=== PATIENT | female | born 1965 | race Caucasian/White ===

== ENCOUNTER 2016-11-03 14:14 | Emergency (ER) | payer OTHER ==
[~2016-11-03] VITALS: Ht 162.6 cm; Wt 80.6 kg
[~2016-11-03 14:14] MED LIST: ANAPROX DS550 M1 PO; BUSPAR5 MG; BUSPAR5 MG PO; CYMBALTA60 MG; CYMBALTA60 MG PO; GLIPIZIDE10 MG; GLIPIZIDE10 MG PO; HYDROCODON-ACE1 EAC7 PO; LEVEMIR FL100 UNIT/1 SC; LISINOPRIL20 MG PO; METFORMIN HCL1000 M1; METFORMIN HCL1000 MG PO; SEROQUEL50 MG; SEROQUEL50 MG PO
[2016-11-03 15:41] LABS: EOSINOPHIL (%) 1.2 % (0-5); EOSINOPHIL COUNT 0.1 K/uL (0-0.3); HEMATOCRIT 35.6 % (36.0-46.0); IMMATURE GRANULOCYTE (%) 0.2 % (0.0-0.7); IMMATURE GRANULOCYTE COUNT 0.2 K/uL; LYMPHOCYTE COUNT 2.1 K/uL (1.0-2.8); MCH 29.2 PG (29.0-34.0); MCHC 33.7 G/DL (30.0-36.0); MCV 86.6 FL (83-99); MEAN PLAT.VOLUME 10.3 uM^3 (9.5-12.4); MONOCYTE (%) 8.3 % (3-12); NEUTROPHIL (%) 73.1 % (45-76); NEUTROPHIL COUNT 8.8 K/uL (1.8-6.4); PLATELET COUNT 231 K/uL (156-360); RBC DIS.WIDTH-CV 12.2 % (11.8-14.6); RBC DIS.WIDTH-SD 37.7 % (39-53); RED BLOOD COUNT 4.11 M/uL (3.80-5.20); WHITE BLOOD COUNT 12.1 K/uL (4.1-10.2)
[2016-11-03 15:49] LABS: CHLORIDE 99 mEq/L (99-109); POTASSIUM 4.2 mEq/L (3.7-5.4); SODIUM 133 mEq/L (136-147)
[2016-11-03 15:52] LABS: ANION GAP 13 MEQ/L (2-14)
[2016-11-03 15:53] LABS: TOTAL BILIRUBIN 0.4 mg/dL (0.0-1.0)
[2016-11-03 15:54] LABS: ALKALINE PHOSPHATASE 87 IU/L (3-129)
[2016-11-03 15:55] LABS: GFR ESTIMATE (CALCULATED) > 59 mL/min/
[2016-11-03 15:56] LABS: DIRECT BILIRUBIN 0.1 mg/dL (0.0-0.3); UREA NITROGEN (BUN) 24 mg/dL (9-23)
[2016-11-03 16:01] LABS: GLUCOSE 466 mg/dL (70-99)
[2016-11-03 17:25] LABS: POINT-OF-CARE METER ID UU13113702; POINT-OF-CARE USER ID 608261302
[2016-11-03] MEDS ORDERED: CLINDAMYCIN HC300 MG PO (17:47)
[2016-11-03 17:48] LABS: ADD MIUA? YES; BILIRUBIN NEGATIVE; BLOOD TRACE; COLOR YELLOW ((YELLOW)); GLUCOSE (STRIP) >=1000; KETONES 40; LEUKOCYTES SMALL; NITRITE NEGATIVE; PH, URINE 5.5 (5-8); PROTEIN (STRIP) 30; SPECIFIC GRAVITY 1.036 (1.000-1.030); UROBILINOGEN 0.2 MG/DL (0.2-1.0)
[2016-11-03 18:06] LABS: BACTERIA 1+ /HPF; CASTS NONE SEEN /LPF; CRYSTALS NONE SEEN; EPITHELIAL CELLS 1+ /HPF; MUCUS NONE SEEN /LPF; RED BLOOD CELLS RARE /HPF (0-5); UCUL ADDED? NO
[2016-11-03 20:05] VITALS: BP 138/82
[2016-11-03 22:40] LABS: POINT-OF-CARE METER ID UU13113778
== END 2016-11-03 20:10 | disposition home or self-care (01) ==
LOC: EME 14:14
PROVIDERS: Emergency Medicine
DX: L03.116 Cellulitis of left lower limb (principal); E11.621 Type 2 diabetes mellitus with foot ulcer; L97.529 Non-pressure chronic ulcer of other part of left foot with unspecified severity; E11.65 Type 2 diabetes mellitus with hyperglycemia; Z91.14 Patient's other noncompliance with medication regimen; I10 Essential (primary) hypertension; F31.9 Bipolar disorder, unspecified; Z79.84 Long term (current) use of oral hypoglycemic drugs; Z87.891 Personal history of nicotine dependence
CPT/HCPCS: 73630; 80048; 80076; 81003; 82948; 83605; 85025; 99281; 99285; J0696; J7030; J7050

== ENCOUNTER 2017-08-11 00:24 | Inpatient (IN) | payer OTHER ==
[~2017-08-11] VITALS: Ht 162.6 cm; Wt 81.8 kg
[~2017-08-11 00:24] MED LIST changes: +CLINDAMYCIN HC300 MG PO
[2017-08-11 01:35] LABS: HEMATOCRIT 34.6 % (36.0-46.0); MCH 28.2 PG (29.0-34.0); MCHC 32.1 G/DL (30.0-36.0); MCV 87.8 FL (83-99); MEAN PLAT.VOLUME 10.3 uM^3 (9.5-12.4); PLATELET COUNT 315 K/uL (156-360); RBC DIS.WIDTH-CV 13.2 % (11.8-14.6); RBC DIS.WIDTH-SD 42.1 % (39-53); RED BLOOD COUNT 3.94 M/uL (3.80-5.20); WHITE BLOOD COUNT 7.9 K/uL (4.1-10.2)
[2017-08-11 01:50] LABS: CHLORIDE 95 mEq/L (99-109); POTASSIUM 4.7 mEq/L (3.7-5.4); SODIUM 133 mEq/L (136-147)
[2017-08-11 01:53] LABS: ANION GAP 12 MEQ/L (2-14)
[2017-08-11 01:55] LABS: GFR ESTIMATE (CALCULATED) > 59 mL/min/
[2017-08-11 01:56] LABS: UREA NITROGEN (BUN) 14 mg/dL (9-23)
[2017-08-11 02:00] LABS: TROP-I INTERPRETATION POSITIVE
[2017-08-11 02:01] LABS: GLUCOSE 463 mg/dL (70-99)
[2017-08-11 02:02] LABS: TROPONIN-I 1.09 ng/mL (0.0-0.30)
[2017-08-11 02:20] LABS: INTER. NORMALIZED RATIO 1.1; PROTHROMBIN TIME 12.4 SEC (10.2-12.9)
[2017-08-11 02:22] LABS: BASE EXCESS 2.8 mEq/L (-3 to +3); BICARBONATE 27.2 mEq/L (22-26); METHEMOGLOBIN 0.1 % (0-1.5); PCO2 40 mm Hg (35-45); PO2 55 mm Hg (80-100); pH 7.44 (7.35-7.45)
[2017-08-11 02:23] LABS: COMMENTS - BLOOD GASES A+C+; DEVICE NC; O2 FLOW 2 L/MIN; SITE RR
[2017-08-11 02:26] LABS: TOTAL BILIRUBIN 0.5 mg/dL (0.0-1.0)
[2017-08-11 02:27] LABS: ALKALINE PHOSPHATASE 169 IU/L (3-129)
[2017-08-11 02:30] LABS: DIRECT BILIRUBIN 0.2 mg/dL (0.0-0.3)
[2017-08-11 02:31] LABS: LIPASE 32 U/L (1.0-51.0)
[2017-08-11 05:53] LABS: POINT-OF-CARE METER ID UU13113702
[2017-08-11 07:07] LABS: POINT-OF-CARE METER ID UU13113702
[2017-08-11 08:19] LABS: HDL CHOLESTEROL 44 MG/DL (Desirable>=50); LDL CHOLESTEROL 167 mg/dL (Desirable<100); NON-HDL CHOLESTEROL 218 mg/dL (Desirable<160); TOTAL CHOLESTEROL 262 mg/dL (Desirable<200); TRIGLYCERIDES 255 MG/DL (Normal: <150)
[2017-08-11 09:40] VITALS: BP 135/74
[2017-08-11 10:37] LABS: POINT-OF-CARE METER ID UU13113696
[2017-08-11 11:13] LABS: POINT-OF-CARE METER ID UU13113696; POINT-OF-CARE USER ID HMLCJM07
[2017-08-11 12:13] LABS: POINT-OF-CARE METER ID UU13113819
[2017-08-11 14:35] VITALS: BP 122/69
[2017-08-11 15:30] VITALS: BP 122/69; BP 136/70
[2017-08-11] MEDS ORDERED: LIPITOR80 MG PO (16:29)
[2017-08-11] MEDS ORDERED: VENTOLIN HFA18 GM IH (16:30)
[2017-08-11] MEDS ORDERED: SENTRY MULTIVI1 EACH PO (16:31)
[2017-08-11] MEDS ORDERED: ZYRTEC10 M3 PO (16:32)
[2017-08-11] MEDS ORDERED: CALTRATE 600 +1 EAC1 PO (16:32)
[2017-08-11 17:55] LABS: ADD MIUA? YES; BILIRUBIN NEGATIVE; BLOOD SMALL; COLOR YELLOW ((YELLOW)); GLUCOSE (STRIP) >=500; KETONES 5; LEUKOCYTES LARGE; NITRITE POSITIVE; PROTEIN (STRIP) 30; UROBILINOGEN 0.2 MG/DL (0.2-1.0)
[2017-08-11 18:01] LABS: SPECIFIC GRAVITY 1.063 (1.000-1.030)
[2017-08-11 18:09] LABS: POINT-OF-CARE METER ID UU13113781
[2017-08-11 18:21] LABS: BACTERIA 4+ /HPF; EPITHELIAL CELLS 2+ /HPF; MUCUS NONE SEEN /LPF; UCUL ADDED? YES; WHITE BLOOD CELLS TNTC /HPF (0-5)
[2017-08-11 18:38] LABS: TROP-I INTERPRETATION POSITIVE
[2017-08-11 22:02] VITALS: BP 132/63
[2017-08-11 22:23] LABS: POINT-OF-CARE METER ID UU13113781
[2017-08-12 00:21] VITALS: BP 97/56
[2017-08-12 03:41] VITALS: BP 115/66
[2017-08-12 05:24] LABS: HEMATOCRIT 32.4 % (36.0-46.0); MCH 28.4 PG (29.0-34.0); MCHC 32.1 G/DL (30.0-36.0); MCV 88.5 FL (83-99); PLATELET COUNT 275 K/uL (156-360); RBC DIS.WIDTH-CV 13.6 % (11.8-14.6); RBC DIS.WIDTH-SD 44.1 % (39-53); RED BLOOD COUNT 3.66 M/uL (3.80-5.20); WHITE BLOOD COUNT 7.3 K/uL (4.1-10.2)
[2017-08-12 05:54] LABS: ANION GAP 10 MEQ/L (2-14); CHLORIDE 98 MEQ/L (99-109); GFR ESTIMATE (CALCULATED) > 59 mL/min/; SAMPLE HEMOLYSIS CHECK 0; SAMPLE ICTERIC CHECK 0; SAMPLE LIPEMIA CHECK 0; SODIUM 137 MEQ/L (136-147); UREA NITROGEN (BUN) 21 mg/dL (9-23)
[2017-08-12 05:55] LABS: GLUCOSE 172 mg/dL (70-99)
[2017-08-12 08:14] LABS: POINT-OF-CARE METER ID UU13113781
[2017-08-12 09:00] VITALS: BP 108/61
[2017-08-12 12:15] VITALS: BP 101/58
[2017-08-12 12:16] LABS: POINT-OF-CARE METER ID UU14174216
[2017-08-12 16:00] VITALS: BP 103/56
[2017-08-12 16:47] LABS: POINT-OF-CARE METER ID UU14174216
[2017-08-12 19:26] VITALS: BP 107/58
[2017-08-12 21:18] LABS: POINT-OF-CARE METER ID UU13113781
[2017-08-13] VITALS (7 sets, daily range): BP systolic 100–122; BP diastolic 52–69
[2017-08-13 05:55] LABS: EOSINOPHIL (%) 3.7 % (0-5); EOSINOPHIL COUNT 0.3 K/uL (0-0.3); IMMATURE GRANULOCYTE (%) 0.4 % (0.0-0.7); INSTRUMENT ABS NEUTROPHIL CT 4.2 K/uL; LYMPHOCYTE COUNT 2.9 K/uL (1.0-2.8); MCH 28.8 PG (29.0-34.0); MCHC 32.1 G/DL (30.0-36.0); MCV 89.7 FL (83-99); MEAN PLAT.VOLUME 10.2 uM^3 (9.5-12.4); MONOCYTE (%) 10.6 % (3-12); MONOCYTE COUNT 0.9 K/uL (0-0.8); NEUTROPHIL (%) 50.1 % (45-76); NEUTROPHIL COUNT 4.2 K/uL (1.8-6.4); PLATELET COUNT 331 K/uL (156-360); RBC DIS.WIDTH-CV 13.6 % (11.8-14.6); RBC DIS.WIDTH-SD 44.7 % (39-53); RED BLOOD COUNT 3.68 M/uL (3.80-5.20); WHITE BLOOD COUNT 8.3 K/uL (4.1-10.2)
[2017-08-13 06:56] LABS: ANION GAP 11 MEQ/L (2-14); CHLORIDE 96 MEQ/L (99-109); GFR ESTIMATE (CALCULATED) > 59 mL/min/; POTASSIUM 3.4 MEQ/L (3.7-5.4); SAMPLE HEMOLYSIS CHECK 0; SAMPLE ICTERIC CHECK 0; SAMPLE LIPEMIA CHECK 0; SODIUM 137 MEQ/L (136-147); UREA NITROGEN (BUN) 26 mg/dL (9-23)
[2017-08-13 06:57] LABS: GLUCOSE 53 mg/dL (70-99)
[2017-08-13 08:17] LABS: POINT-OF-CARE METER ID UU14174216
[2017-08-13 08:58] LABS: POINT-OF-CARE METER ID UU13113698
[2017-08-13 12:13] LABS: POINT-OF-CARE METER ID UU14174216
[2017-08-13 16:26] LABS: POINT-OF-CARE METER ID UU14174216
[2017-08-13 21:04] LABS: POINT-OF-CARE METER ID UU13113698
[2017-08-14 04:11] VITALS: BP 93/53
[2017-08-14 05:40] LABS: HEMATOCRIT 31.4 % (36.0-46.0); MCH 28.7 PG (29.0-34.0); MCHC 31.8 G/DL (30.0-36.0); MEAN PLAT.VOLUME 9.9 uM^3 (9.5-12.4); PLATELET COUNT 275 K/uL (156-360); RBC DIS.WIDTH-CV 13.4 % (11.8-14.6); RED BLOOD COUNT 3.49 M/uL (3.80-5.20); WHITE BLOOD COUNT 6.6 K/uL (4.1-10.2)
[2017-08-14 06:11] LABS: ANION GAP 7 MEQ/L (2-14); CHLORIDE 98 MEQ/L (99-109); GFR ESTIMATE (CALCULATED) > 59 mL/min/; GLUCOSE 72 mg/dL (70-99); SAMPLE HEMOLYSIS CHECK 0; SAMPLE ICTERIC CHECK 0; SAMPLE LIPEMIA CHECK 0; SODIUM 139 MEQ/L (136-147); UREA NITROGEN (BUN) 21 mg/dL (9-23)
[2017-08-14 06:14] LABS: POTASSIUM 4.3 MEQ/L (3.7-5.4)
[2017-08-14 08:43] LABS: POINT-OF-CARE METER ID UU14314088; POINT-OF-CARE USER ID ENVKC36
[2017-08-14 08:45] VITALS: BP 100/62
[2017-08-14 11:45] VITALS: BP 102/57
[2017-08-14 11:55] LABS: POINT-OF-CARE METER ID UU14314088; POINT-OF-CARE USER ID ENVKC36
[2017-08-14 16:40] VITALS: BP 126/70
[2017-08-14 17:00] LABS: POINT-OF-CARE METER ID UU13113781; POINT-OF-CARE USER ID ENVKC36
[2017-08-14 19:00] VITALS: BP 118/64
[2017-08-14 21:30] LABS: POINT-OF-CARE METER ID UU13113698
[2017-08-14 23:25] VITALS: BP 124/67
[2017-08-15 03:37] VITALS: BP 110/64
[2017-08-15 04:51] LABS: EOSINOPHIL (%) 3.3 % (0-5); EOSINOPHIL COUNT 0.2 K/uL (0-0.3); HEMATOCRIT 31.9 % (36.0-46.0); IMMATURE GRANULOCYTE (%) 0.3 % (0.0-0.7); LYMPHOCYTE COUNT 2.1 K/uL (1.0-2.8); MCH 28.5 PG (29.0-34.0); MCHC 31.7 G/DL (30.0-36.0); MCV 90.1 FL (83-99); MEAN PLAT.VOLUME 9.8 uM^3 (9.5-12.4); MONOCYTE (%) 11.1 % (3-12); MONOCYTE COUNT 0.7 K/uL (0-0.8); PLATELET COUNT 282 K/uL (156-360); RBC DIS.WIDTH-CV 13.2 % (11.8-14.6); RBC DIS.WIDTH-SD 43.9 % (39-53); RED BLOOD COUNT 3.54 M/uL (3.80-5.20); WHITE BLOOD COUNT 6.1 K/uL (4.1-10.2)
[2017-08-15 05:19] LABS: CHLORIDE 100 mEq/L (99-109); POTASSIUM 4.1 mEq/L (3.7-5.4); SODIUM 138 mEq/L (136-147)
[2017-08-15 05:23] LABS: ANION GAP 6 MEQ/L (2-14)
[2017-08-15 05:25] LABS: GFR ESTIMATE (CALCULATED) > 59 mL/min/
[2017-08-15 05:26] LABS: UREA NITROGEN (BUN) 19 mg/dL (9-23)
[2017-08-15 05:28] LABS: GLUCOSE 151 mg/dL (70-99)
[2017-08-15 07:35] VITALS: BP 113/66
[2017-08-15 08:15] LABS: POINT-OF-CARE METER ID UU14314088; POINT-OF-CARE USER ID ENVKC36
[2017-08-15 11:00] VITALS: BP 115/66
[2017-08-15 11:54] LABS: POINT-OF-CARE METER ID UU13113781; POINT-OF-CARE USER ID ENVKC36
[2017-08-15 15:05] VITALS: BP 110/65
[2017-08-15] MEDS ORDERED: ASPIR-LOW81 MG PO (15:17)
[2017-08-15] MEDS ORDERED: GLIPIZIDE10 MG PO (15:17)
[2017-08-15] MEDS ORDERED: CLOPIDOGREL75 MG PO (15:17)
[2017-08-15] MEDS ORDERED: FUROSEMIDE20 MG PO (15:17)
[2017-08-15] MEDS ORDERED: LIPITOR80 MG PO (15:18)
[2017-08-15] MEDS ORDERED: CARVEDILOL3.125 MG PO (15:18)
[2017-08-15] MEDS ORDERED: CEFTIN500 MG PO (15:21)
[2017-08-15] MEDS ORDERED: LISINOPRIL20 MG PO (15:21)
[2017-08-15 16:50] LABS: POINT-OF-CARE METER ID UU13113698; POINT-OF-CARE USER ID ENVKC36
== END 2017-08-15 18:07 | disposition home health service (06) | DRG 280 ==
LOC: EME 00:24 → 4EAST 06:07 → EDOF 06:07 → CANRESERV 06:10 → ENRESERV 06:10 → 4EAST 09:27
PROVIDERS: Emergency Medicine; Hospitalist; Internal Medicine; Internal Medicine Cardiovascular Disease
DX: I21.4 Non-ST elevation (NSTEMI) myocardial infarction (principal); I11.0 Hypertensive heart disease with heart failure; I50.21 Acute systolic (congestive) heart failure; J96.01 Acute respiratory failure with hypoxia; N39.0 Urinary tract infection, site not specified; I42.9 Cardiomyopathy, unspecified; I25.10 Atherosclerotic heart disease of native coronary artery without angina pectoris; E11.9 Type 2 diabetes mellitus without complications; E78.00 Pure hypercholesterolemia, unspecified; E78.5 Hyperlipidemia, unspecified; F31.9 Bipolar disorder, unspecified; E11.65 Type 2 diabetes mellitus with hyperglycemia; I34.0 Nonrheumatic mitral (valve) insufficiency; I44.7 Left bundle-branch block, unspecified; R13.10 Dysphagia, unspecified; G47.33 Obstructive sleep apnea (adult) (pediatric); E66.9 Obesity, unspecified; Z23 Encounter for immunization; Z68.31 Body mass index [BMI] 31.0-31.9, adult; Z86.73 Personal history of transient ischemic attack (TIA), and cerebral infarction without residual deficits; Z87.891 Personal history of nicotine dependence; Z91.041 Radiographic dye allergy status; Z91.013 Allergy to seafood; Z91.040 Latex allergy status
CPT/HCPCS: 36600; 71020; 71275; 80048; 80061; 80076; 81003; 82010; 82803; 82948; 83605; 83690; 83880; 84484; 85025; 85027; 85347; 85610; 85730; 87077; 87086; 87186; 90686; 93005; 93306; 94640; 94760; 94799; 99202; 99281; 99285; C1769; C1887; J0461; J0696; J1200; J1644; J1815; J1940; J2250; J2270; J2405; J2765; J2930; J3010; J7050

== ENCOUNTER 2017-10-16 14:27 | Emergency (ER) | payer OTHER ==
[~2017-10-16] VITALS: Ht 162.6 cm; Wt 90.0 kg
[~2017-10-16 14:27] MED LIST changes: +ASPIR-LOW81 MG PO; +CALTRATE 600 +1 EAC1 PO; +CARVEDILOL3.125 MG PO; +CEFTIN500 MG PO; +CLOPIDOGREL75 MG PO; +FUROSEMIDE20 MG PO; +LIPITOR80 MG PO; +SENTRY MULTIVI1 EACH PO; +VENTOLIN HFA18 GM IH; +ZYRTEC10 M3 PO
[2017-10-16 15:50] LABS: HEMATOCRIT 29.4 % (36.0-46.0); HEMOGLOBIN 9.3 G/DL (11.9-15.5); MCH 27.8 PG (29.0-34.0); MCHC 31.6 G/DL (30.0-36.0); MCV 87.8 FL (83-99); PLATELET COUNT 238 K/uL (156-360); RBC DIS.WIDTH-CV 14.1 % (11.8-14.6); RBC DIS.WIDTH-SD 45.3 % (39-53); RED BLOOD COUNT 3.35 M/uL (3.80-5.20); WHITE BLOOD COUNT 8.7 K/uL (4.1-10.2)
[2017-10-16 16:07] LABS: ALBUMIN 3.8 g/dL (3.2-4.8)
[2017-10-16 16:08] LABS: CHLORIDE 102 mEq/L (99-109); POTASSIUM 4.6 mEq/L (3.7-5.4); SODIUM 138 mEq/L (136-147)
[2017-10-16 16:10] LABS: GLUCOSE 155 mg/dL (70-99); TOTAL PROTEIN 7.3 g/dL (6.4-8.3)
[2017-10-16 16:12] LABS: TOTAL BILIRUBIN 0.5 mg/dL (0.0-1.0)
[2017-10-16 16:13] LABS: ALKALINE PHOSPHATASE 77 IU/L (3-129)
[2017-10-16 16:14] LABS: CREATININE 0.8 mg/dL (0.6-1.3); GFR ESTIMATE (CALCULATED) > 59 mL/min/
[2017-10-16 16:15] LABS: AST (GOT) 13 IU/L (2-34); UREA NITROGEN (BUN) 27 mg/dL (9-23)
[2017-10-16 16:16] LABS: ALT (GPT) 17 IU/L (3-49)
[2017-10-16] MEDS ORDERED: NAPROSYN500 MG PO (18:16)
[2017-10-16] MEDS ORDERED: MEDROL DOSEPAK4 MG PO (18:16)
[2017-10-16 18:37] VITALS: BP 123/81
== END 2017-10-16 18:44 | disposition home or self-care (01) ==
LOC: EME 14:27
PROVIDERS: Anesthesiology
DX: M79.605 Pain in left leg (principal); M54.5 Low back pain; I10 Essential (primary) hypertension; J45.909 Unspecified asthma, uncomplicated; F32.9 Major depressive disorder, single episode, unspecified; Z86.73 Personal history of transient ischemic attack (TIA), and cerebral infarction without residual deficits; Z87.891 Personal history of nicotine dependence
CPT/HCPCS: 80053; 85027; 99281; 99284; J1100